=== PATIENT | male | born 1945 | race Caucasian/White ===

== ENCOUNTER 2018-12-24 07:51 | Day surgery (SDC) | payer OTHER ==
[~2018-12-24] VITALS: Ht 182.9 cm; Wt 80.3 kg
[~2018-12-24 07:51] MED LIST: STIOLTO RESPIMAT4 GM
[2018-12-24] MEDS ORDERED: BENADRYL25 MG (08:25)
[2018-12-24] MEDS ORDERED: Super B-50 Com1 EACH (08:25)
== END 2018-12-24 10:30 | disposition home or self-care (01) ==
LOC: ORSCSDS 07:51
PROVIDERS: Internal Medicine Gastroenterology
PROC: 0DBE8ZX Excision of Large Intestine, Via Natural or Artificial Opening Endoscopic, Diagnostic (ICD-10-PCS; principal; 2018-12-24 09:15)
PROC: 0DBL8ZX Excision of Transverse Colon, Via Natural or Artificial Opening Endoscopic, Diagnostic (ICD-10-PCS; principal; 2018-12-24 09:15)
PROC: 0DB68ZX Excision of Stomach, Via Natural or Artificial Opening Endoscopic, Diagnostic (ICD-10-PCS; principal; 2018-12-24 09:15)
PROC: 0DBK8ZX Excision of Ascending Colon, Via Natural or Artificial Opening Endoscopic, Diagnostic (ICD-10-PCS; principal; 2018-12-24 09:15)
DX: K21.9 Gastro-esophageal reflux disease without esophagitis (principal); D12.2 Benign neoplasm of ascending colon; D12.3 Benign neoplasm of transverse colon; K57.30 Diverticulosis of large intestine without perforation or abscess without bleeding; K64.8 Other hemorrhoids; N40.0 Benign prostatic hyperplasia without lower urinary tract symptoms; Z12.11 Encounter for screening for malignant neoplasm of colon; Z86.010 Personal history of colon polyps; J44.9 Chronic obstructive pulmonary disease, unspecified; Z87.891 Personal history of nicotine dependence
CPT/HCPCS: 88305; 88342; J2704; J7120

== ENCOUNTER 2020-09-29 21:12 | Emergency (ER) | payer MEDICARE, OTHER ==
[~2020-09-29] VITALS: Ht 180.3 cm; Wt 81.7 kg
[~2020-09-29 21:12] MED LIST changes: +ALBU90OI INH; +BENADRYL25 MG; +Duoneb 2.5-0.5 M3 ML INH; +Loratadine10 MG PO; +OXYC5 PO; +STIOLTO RESPIMAT4 GM INH; +Senna S Tablet1 EACH PO; +Super B-50 Com1 EACH
[2020-09-30 02:31] LABS: Source, Urine Catheter
[2020-09-30 02:39] LABS: Appearance, Urine Clear (Clear); Bilirubin, Urine Neg (Neg); Blood, Urine Neg (Neg); Color, Urine Amber (P-Yellow); Glucose Qualitative, Urine Neg (Neg); Ketones, Urine 3+ (Neg); Leukocyte Esterase, Urine Neg (Neg); Nitrite, Urine Neg (Neg); Protein, Urine Neg (Neg); Specific Gravity, Urine 1.015 (1.003-1.022); Urobilinogen, Urine NORM (Normal)
== END 2020-09-30 03:00 | disposition home or self-care (01) ==
LOC: ER 21:12
PROVIDERS: Emergency Medicine
DX: R33.9 Retention of urine, unspecified (principal); K59.00 Constipation, unspecified; J44.9 Chronic obstructive pulmonary disease, unspecified; Z88.6 Allergy status to analgesic agent; Z79.899 Other long term (current) drug therapy
CPT/HCPCS: 51702; 51798; 74022; 81003; 99283-25; A9270

== ENCOUNTER → 2020-10-03 | Outpatient (CLI) | payer MEDICARE, OTHER ==
[2020-10-03 10:16] LABS: BASOPHILS ABSOLUTE AUTO 0.04 K/mm3 (0.00-0.23); BASOPHILS PERCENT AUTO 0 % (0-2); EOSINOPHILS ABSOLUTE AUTO 0.05 K/mm3 (0.00-0.68); EOSINOPHILS PERCENT AUTO 0 % (0-6); Hemoglobin 12.8 g/dL (13.5-17.5); IMMATURE GRAN ABSOLUTE AUTO 0.08 K/mm3 (0.00-0.10); IMMATURE GRAN PERCENT AUTO 1 % (0-1); LYMPHOCYTES ABSOLUTE AUTO 0.39 K/mm3 (0.84-5.20); LYMPHOCYTES PERCENT AUTO 3 % (21-46); MONOCYTES ABSOLUTE AUTO 0.95 K/mm3 (0.16-1.47); MONOCYTES PERCENT AUTO 8 % (4-13); Mean Corpuscular HGB 32.1 pg (26.0-34.0); Mean Corpuscular HGB Conc 33.7 g/dL (31.5-36.5); Mean Corpuscular Volume 95 fL (80-100); Mean Platelet Volume 8.8 fL (9.1-12.4); NEUTROPHILS ABSOLUTE AUTO 11.12 K/mm3 (1.96-9.15); NEUTROPHILS PERCENT AUTO 88 % (41-73); Platelet Count 463 K/mm3 (150-400); RDW Coefficient Variation 13.2 % (11.7-14.2); RDW Standard Deviation 46.5 fL (35.1-46.3); Red Blood Cell Count 3.99 M/mm3 (4.30-5.90); White Blood Cell Count 12.63 K/mm3 (4.00-11.30)
[2020-10-03 10:28] LABS: Alanine Aminotransfer (ALT/SGP 59 U/L (12-78); Albumin, Blood 3.1 g/dL (3.4-5.0); Albumin/Globulin Ratio 0.7 (0.8-1.8); Alk Phos 125 U/L (40-126); Anion Gap 8 mmol/L (6-16); Aspartate Aminotrans (AST/SGOT 23 U/L (12-37); Bilirubin, Total 0.5 mg/dL (0.1-1.0); Blood Urea Nitrogen 12 mg/dL (8-24); Bun/Creatinine Ratio 15.6 (12.0-20.0); CO2, Blood 31 mmol/L (21-32); Calcium, Blood 9.5 mg/dL (8.5-10.1); Chloride, Blood 96 mmol/L (98-108); Creatinine, Blood 0.77 mg/dL (0.60-1.20); Globulin, Blood 4.3 g/dL (2.2-4.0); Glomerular Filtration Rate >60 (60-); Glucose, Blood 120 mg/dL (70-99); Potassium, Blood 4.6 mmol/L (3.5-5.5); Sodium, Blood 135 mmol/L (136-145); Total Protein, Blood 7.4 g/dL (6.4-8.2)
== END | disposition home or self-care (01) ==
LOC: LAB SHORT 10:12 → LAB EV 10:12
PROVIDERS: General Practice
DX: R33.9 Retention of urine, unspecified (principal)
CPT/HCPCS: 80053; 85025; 87086

== ENCOUNTER → 2021-02-04 | Outpatient (CLI) | payer MEDICARE, OTHER ==
[2021-02-04 16:29] LABS: BASOPHILS ABSOLUTE AUTO 0.03 K/mm3 (0.00-0.23); BASOPHILS PERCENT AUTO 0 % (0-2); EOSINOPHILS PERCENT AUTO 1 % (0-6); Hematocrit 40.1 % (37.0-53.0); Hemoglobin 13.4 g/dL (13.5-17.5); IMMATURE GRAN ABSOLUTE AUTO 0.04 K/mm3 (0.00-0.10); IMMATURE GRAN PERCENT AUTO 0 % (0-1); LYMPHOCYTES ABSOLUTE AUTO 0.44 K/mm3 (0.84-5.20); LYMPHOCYTES PERCENT AUTO 5 % (21-46); MONOCYTES ABSOLUTE AUTO 1.05 K/mm3 (0.16-1.47); MONOCYTES PERCENT AUTO 11 % (4-13); Mean Corpuscular HGB 30.9 pg (26.0-34.0); Mean Corpuscular HGB Conc 33.4 g/dL (31.5-36.5); Mean Corpuscular Volume 93 fL (80-100); Mean Platelet Volume 8.2 fL (9.1-12.4); NEUTROPHILS ABSOLUTE AUTO 7.73 K/mm3 (1.96-9.15); NEUTROPHILS PERCENT AUTO 82 % (41-73); Platelet Count 285 K/mm3 (150-400); RDW Coefficient Variation 13.4 % (11.7-14.2); RDW Standard Deviation 45.6 fL (35.1-46.3); Red Blood Cell Count 4.33 M/mm3 (4.30-5.90); White Blood Cell Count 9.39 K/mm3 (4.00-11.30)
[2021-02-04 16:33] LABS: Anion Gap 9 mmol/L (6-16); Blood Urea Nitrogen 14 mg/dL (8-24); Bun/Creatinine Ratio 17.7 (12.0-20.0); CO2, Blood 28 mmol/L (21-32); Calcium, Blood 9.6 mg/dL (8.5-10.1); Chloride, Blood 96 mmol/L (98-108); Creatinine, Blood 0.79 mg/dL (0.60-1.20); Glomerular Filtration Rate >60 (60-); Glucose, Blood 108 mg/dL (70-99); Potassium, Blood 4.6 mmol/L (3.5-5.5); Sodium, Blood 133 mmol/L (136-145)
== END | disposition home or self-care (01) ==
LOC: LAB SHORT 16:24
PROVIDERS: Physician Assistant Surgical
DX: R60.0 Localized edema (principal)
CPT/HCPCS: 80048; 85025

== ENCOUNTER → 2021-07-24 | Outpatient (CLI) | payer MEDICARE, OTHER ==
[~2021-07-24] MED LIST changes: +ACETAMINOPHEN PO; +LORA1SY; +MORP20L PO; +ROPI.25 PO; +STIOLTO RESPIMAT4 G1 INH
[2021-07-24 15:45] LABS: Bilirubin, Urine Neg (Neg); Blood, Urine Neg (Neg); Glucose Qualitative, Urine Neg (Neg); Ketones, Urine Neg (Neg); Leukocyte Esterase, Urine Neg (Neg); Nitrite, Urine Neg (Neg); Protein, Urine 2+ (Neg); Specific Gravity, Urine 1.025 (1.003-1.022); Urobilinogen, Urine 1+ (Normal)
[2021-07-24 16:01] LABS: Appearance, Urine Hazy (Clear); Color, Urine Pale Yellow (P-Yellow); Red Blood Cells, Urine 0-2 /hpf (0-2); White Blood Cells, Urine 0-2 /hpf (0-5)
[2021-07-24 16:02] LABS: Bacteria Many /hpf
[2021-07-24 16:03] LABS: Squamous Epithelial Cells Rare /hpf (Few)
[2021-07-24 16:04] LABS: Amorphous Heavy (0-Heavy)
== END ==
LOC: LAB SHORT 14:04 → LAB FUT 07-22 08:45
PROVIDERS: Registered Nurse Oncology
DX: C34.11 Malignant neoplasm of upper lobe, right bronchus or lung (principal)
CPT/HCPCS: 81001

== ENCOUNTER 2021-07-26 08:33 | Inpatient (IN) | payer MEDICARE, OTHER ==
[~2021-07-26] VITALS: Ht 182.9 cm; Wt 74.0 kg
--- NOTE | 2021-07-26 10:15 | NUR ---
History, Chart, Medications and Allergies reviewed before start of procedure. Pre-Op teaching done. Pt verbalizes understanding. Patient confirms NPO status and agrees with scheduled surgery. PT BROUGHT HIS HOME O2 INTO DAY SURGERY, SWITCHED TO WALL O2 AND PT SEFERINO STATES SHE WILL TAKE THE OXYGEN TANK WITH HER.
[2021-07-26] MEDS ORDERED: BANOPHEN25 MG PO (10:20)
[2021-07-26] MEDS ORDERED: FOLI1 PO (10:22)
[2021-07-26] MEDS ORDERED: MORP15ER PO (10:22)
--- NOTE | 2021-07-26 10:43 | NUR ---
PER OR LICENSED STAFF MFT, PT SURGERY DELAYED, PT TAKEN TO ROOM 219, REPORT TO HEBER Mcallister
--- NOTE | 2021-07-26 15:29 | NUR ---
07/26/21 1529 Dale Rivera UPON ENTRY TO OR PT NOTED TO HAVE SKIN TEAR LESS THAN ONE QUARTER IN SIZE. XEROFORM AND TEGADERM APPLIED PER MD. POST OPERATIVELY UPON MOVING PT OVER TO BED PT NOTED TO HAVE REDNESS ON THEIR BOTTOM. PINK ALLEVYN PRESSURE DRESSING APPLIED. PACU NOTIFIED.
--- NOTE | 2021-07-26 17:28 | NUR ---
SHIFT SUMMARY PT A&OX4, VSS/4LNC (BASELINE) >92%. S/P L JOVANNI, 3 GAUZE/FOAM TAPE DRESSINGS CDI. MAEW, REPOSITIONS SELF WELL, DENIES N&T AT THIS TIME. PAIN MANAGED WITH MS CONTIN 15. CHRISTINE PO. AWAITING POST-OP VOID. AT BEDSIDE. WILL REPORT TO ONCOMING NOC RN.
--- NOTE | 2021-07-27 00:29 | NUR ---
AT 2030 BLADDER SCAN = 285 ML, PT. STATED HE DOES NOT HAVE THE URGE TO URINATE. WAS NOTIFIED BY CN.PT. GIVEN WATER & CRANBERRY JUICE PER PT'S REQUEST, FINISHED 240 ML OF WATER & 150 ML OF CRANBERRY JUICE, NO URGE TO URINATE PER PT. i OFFERED TO DO BLADDER SCAN AGAIN, PT. STRONGLY REFUSED & ALSO REFUSING TO INSERT THOMAS CATH. PT. STATED " I WILL BE ABLE TO URINATE LATER". NO S/S OF DISTRESS NOTED, WILL CONTINUE TO MONITOR.
--- NOTE | 2021-07-27 01:30 | NUR ---
OFFERED TO DO BLADDER SCAN PT. TRIED TO URINATE BUT NOTHING CAME OUT,PT. REFUSED BLADDER SCAN & THOMAS CATHETER RINSERTION.
[2021-07-27 04:37] LABS: BASOPHILS ABSOLUTE AUTO 0.05 K/mm3 (0.00-0.23); BASOPHILS PERCENT AUTO 0 % (0-2); EOSINOPHILS PERCENT AUTO 0 % (0-6); Hematocrit 25.3 % (37.0-53.0); Hemoglobin 7.4 g/dL (13.5-17.5); IMMATURE GRAN ABSOLUTE AUTO 0.64 K/mm3 (0.00-0.10); IMMATURE GRAN PERCENT AUTO 2 % (0-1); LYMPHOCYTES ABSOLUTE AUTO 0.43 K/mm3 (0.84-5.20); LYMPHOCYTES PERCENT AUTO 2 % (21-46); MONOCYTES ABSOLUTE AUTO 0.87 K/mm3 (0.16-1.47); MONOCYTES PERCENT AUTO 3 % (4-13); Mean Corpuscular HGB 28.8 pg (26.0-34.0); Mean Corpuscular HGB Conc 29.2 g/dL (31.5-36.5); Mean Corpuscular Volume 98 fL (80-100); Mean Platelet Volume 9.5 fL (9.1-12.4); NEUTROPHILS ABSOLUTE AUTO 26.64 K/mm3 (1.96-9.15); NEUTROPHILS PERCENT AUTO 93 % (41-73); Platelet Count 208 K/mm3 (150-400); RDW Coefficient Variation 20.1 % (11.7-14.2); RDW Standard Deviation 72.4 fL (35.1-46.3); Red Blood Cell Count 2.57 M/mm3 (4.30-5.90); White Blood Cell Count 28.63 K/mm3 (4.00-11.30)
--- NOTE | 2021-07-27 05:15 | NUR ---
SHIFT SUMMARY: PT. AOX4, UNABLE TO VOID UNTIL 0430 WITH ONLY 50 ML, OFFERED REPEAT BLADDER SCAN 2 MORE X EARLIER, PT. KEPT REFUSING HE SAID HE CAN URINATE LATER, AT 0430 PT VOIDED ONLY 50 ML, BLADDER SCAN OF 402 ML, PT. SUBMITTED FOR CATHETER PLACEMENT FOR IN & OUT, DRAINED 600 ML. ABLE TO AMBULATE TO THE BATHROOM WITH FWW & GAITBELT ON 1 PERSON ASSIST, NO ACUTE CHANGES NOTED, TOLERABLE PAIN TO L HIP AT THIS TIME, WILL CONTINUE TO MONITOR.
--- NOTE | 2021-07-27 06:17 | NUR ---
PT. AMBULATED TO BATHROOM WITH FWW & GAITBELT WITH 1 PERSON ASSIST W/O PROBLEMS, BUT PT. STATED THAT WHEN HE WAS TRYING TO SCOOT BACK ON THE TOILET SEAT, HE HEARD A POP TO HIS L HIP, DENIES PAIN BUT HE REFUSED TO WALK FARTHER MORE & REQUESTED TO SIT ON THE CHAIR . OFFERED PAIN MEDICINE IF HE NEEDS IT, PT. REFUSED & SAID HE DOES NOT HAVE PAIN & THAT HE WANTS TO OBSERVE HIS L HIP.
--- NOTE | 2021-07-27 14:35 | NUR ---
PT HAS BEEN UNABLE TO VOID THIS SHIFT. HE ATTEMPTED X1. BLADDER SCAN SHOWS 175ML IN HIS BLADDER. PT ENCOURAGED TO INCREASE FLUID INTAKE. PT REPORTS NO BM X4-5 DAYS. PT ATTEMPTED TO VOID AND HAVE A BM X1 THIS AFTERNOON AND WAS UNABLE. REACHED OUT TO DR. RUCKER, WAITING FOR HER TO ROUND OR RETURN CALL AT THIS TIME. WILL CONTINUE TO MONITOR.
[2021-07-27] MEDS ORDERED: OXAYDO5 M1 PO (17:30)
--- NOTE | 2021-07-27 18:22 | NUR ---
DISCHARGE PT PROVIDED WITH WRITTEN AND VERBAL DISCHARGE INSTRUCTIONS; PT AND HIS FAMILY MEMBER REPORTED UNDERSTANDING. CLEAN DRESSING SUPPLIES PROVIDED. PRESCRIPTION TO MANAGE BREAKTHROUGH PAIN PROVIDED. PT WAS ABLE TO VOID 200ML PRIOR TO DISCHARGE, POST VOID RESIDUAL SHOWED 187ML. DR. RUCKER NOTIFIED OF VOID AND PVR. PT'S FAMILY MEMBER STATED SHE WAS CONTACTED BY PT'S OUTPATIENT PHYSICIAN TODAY, TO NOTIFY HER THAT PT HAD A UTI, DIAGNOSED FROM PREVIOUS DOCTOR VISIT. PER PT'S FAMILY MEMBER ABX WERE CALLED IN BY OUTPATIENT PHYSICIAN. DR. RUCKER NOTIFIED OF REPORT FROM FAMILY REGARDING ABX AND UTI. PT WAS PROVIDED WITH MIRALAX FOR CONSTIPATION PRIOR TO DISCHARGE. PT WAS ALSO EDUCATED TO FOLLOW UP WITH PCP REGARDING L ELBOW WOUND. PAIN MANAGED AT TIME OF DISCHARGE. PT CLEARED THERAPY. PT ASSISTED OUT IN W/C BY JAQUELINE YU.
--- NOTE | 2021-07-27 19:17 | NUR ---
PT DISCHARGED HOME AT APPROXIMATELY 1810. HE WAS ASSISTED OUT IN A WHEELCHAIR.
--- NOTE | 2021-07-28 08:58 | NUR ---
Received referral from nurse resident care aide (Ibis Francois) on 07/27/2021. Patient was to discharge with orders for home health and elected [facility]. Patient was admitted to [facility] on 07/26/2021 due to intramedullary gamma nail of hip. Review of patient's records indicate that discharging physician did not write home health orders upon discharge. No further interventions Augustina Ferrer Referral Liaison
[2021-08-17] MEDS ORDERED: CEFTRIAXONE2 G1 IM (12:30)
== END 2021-07-27 18:10 | disposition home or self-care (01) | DRG 481 ==
LOC: ORSCMMR 08:33 → SURS 08:33 → ORSCMMR 08:34 → ORD 11:00 → SURS 11:35 → ORSCMMR 15:57 → SURS 15:57
PROVIDERS: ADMIT Orthopaedic Surgery
PROC: 0QS706Z Reposition Left Upper Femur with Intramedullary Internal Fixation Device, Open Approach (ICD-10-PCS; principal; 2021-07-26 13:00)
DX: M84.459A Pathological fracture, hip, unspecified, initial encounter for fracture (principal); C34.90 Malignant neoplasm of unspecified part of unspecified bronchus or lung; M19.90 Unspecified osteoarthritis, unspecified site; M54.9 Dorsalgia, unspecified; G89.29 Other chronic pain; Z79.899 Other long term (current) drug therapy; M54.59 Other low back pain; Z98.890 Other specified postprocedural states; Z87.891 Personal history of nicotine dependence
CPT/HCPCS: 36415; 81001; 85025; 93005; 93010; 94640; 94664; 94760; 97110; 97116; 97162; 97165; 97530; 97535; A9270; C1713; C1769; J0171; J0690; J1100; J1650; J2250; J2370; J2405; J2704; J2710; J3010; J7120

== ENCOUNTER 2021-08-21 04:18 | Day surgery (SDC) | payer MEDICARE, OTHER ==
[~2021-08-21 04:18] MED LIST changes: +BANOPHEN25 MG PO; +CEFTRIAXONE2 G1 IM; +FOLI1 PO; +MORP15ER PO; +OXAYDO5 M1 PO
[2021-08-21] MEDS ORDERED: DECADRON4 M1 PO (12:27)
[2021-08-21] MEDS ORDERED: ROPI1 PO (12:27)
[2021-08-21] MEDS ORDERED: Acetaminophen650 M1 (12:28)
[2021-08-21] MEDS ORDERED: NYST237S MT (12:28)
[2021-08-21] MEDS ORDERED: ONDA4ODT MM (12:28)
== END 2021-08-21 12:02 | disposition home or self-care (01) ==
LOC: ATC 04:18
DX: L03.90 Cellulitis, unspecified (principal)
CPT/HCPCS: J0696; J2001

== ENCOUNTER 2021-08-22 02:27 | Day surgery (SDC) | payer MEDICARE, OTHER ==
[~2021-08-22 02:27] MED LIST changes: +Acetaminophen650 M1; +DECADRON4 M1 PO; +NYST237S MT; +ONDA4ODT MM; +ROPI1 PO
== END 2021-08-22 11:51 | disposition home or self-care (01) ==
LOC: ATC 02:27
DX: L03.90 Cellulitis, unspecified (principal); C34.11 Malignant neoplasm of upper lobe, right bronchus or lung; C79.51 Secondary malignant neoplasm of bone; C78.7 Secondary malignant neoplasm of liver and intrahepatic bile duct; C78.2 Secondary malignant neoplasm of pleura; J43.9 Emphysema, unspecified; Z98.1 Arthrodesis status; Z87.891 Personal history of nicotine dependence; Z88.6 Allergy status to analgesic agent; Z88.7 Allergy status to serum and vaccine; G89.3 Neoplasm related pain (acute) (chronic)
CPT/HCPCS: J0696; J2001

== ENCOUNTER 2021-09-05 14:34 | Emergency (ER) | payer MEDICARE, OTHER ==
[~2021-09-05] VITALS: Ht 182.9 cm; Wt 63.5 kg
== END 2021-09-05 20:09 | disposition home or self-care (01) ==
LOC: ER 14:34
DX: E86.0 Dehydration (principal); J44.9 Chronic obstructive pulmonary disease, unspecified; C34.90 Malignant neoplasm of unspecified part of unspecified bronchus or lung; C79.51 Secondary malignant neoplasm of bone; Z99.81 Dependence on supplemental oxygen; Z87.891 Personal history of nicotine dependence; Z79.899 Other long term (current) drug therapy; Z88.8 Allergy status to other drugs, medicaments and biological substances
CPT/HCPCS: J2270; J7042